=== PATIENT | male | born 1980 | race Hispanic/Latino ===

== ENCOUNTER 2022-10-05 16:58 | Emergency (ER) | payer OTHER ==
[~2022-10-05] VITALS: Ht 162.6 cm; Wt 82.6 kg
[2022-10-05] MEDS ORDERED: KETOROLAC 60 MG VIAL (30MG/ML) IM ONE (19:00)
[2022-10-05] MEDS ORDERED: CYCL5TAB PO (20:00)
[2022-10-05] MEDS ORDERED: ACET-2079 PO (20:00)
[2022-10-05] MEDS ORDERED: IBUP-2070 PO (20:00)
[2022-10-05] MEDS ORDERED: METH4TAB3 PO (20:00)
[2022-10-05 20:03] VITALS: BP 125/78
== END 2022-10-05 20:09 | disposition home or self-care (01) ==
LOC: EDH 16:58
DX: M77.11 Lateral epicondylitis, right elbow (principal); I10 Essential (primary) hypertension
CPT/HCPCS: 99283; 73080; 96372; J1885